=== PATIENT | female | born 1935 | race Caucasian/White ===

== ENCOUNTER → 2021-04-21 | Outpatient (CLI) | payer MEDICARE, BC | LOC: US 03-16 10:00 → MAMO 03-16 14:00 → US 03-17 10:00 → MAMO 03-17 11:30 → US 03-25 10:00 → MAMO 04-01 10:00 → US 04-01 11:00 → MAMO 04-08 10:30 → US 04-08 11:00 | DX: N64.4 Mastodynia (principal) | CPT/HCPCS: 76641-LT; 77066; G0279 ==

== ENCOUNTER 2021-10-12 09:44 | Emergency (ER) | payer MEDICARE, BC ==
[2021-10-12 12:14] LABS: HEMOGLOBIN 13.7 gm/dl (12.3-15.3); RED BLOOD COUNT 4.44 M/UL (4.00-5.10); WHITE BLOOD COUNT 5.4 K/UL (4.5-11.0)
[2021-10-12 12:55] LABS: BUN/CREATININE RATIO 17 (0-10)
[2021-10-12] MEDS ORDERED: CATAPRES 0.1MG0.1 MG PO (13:43)
== END 2021-10-12 14:13 | disposition home or self-care (01) ==
LOC: ER1 09:44
PROVIDERS: Physician Assistant
DX: I10 Essential (primary) hypertension (principal); R00.1 Bradycardia, unspecified; R53.1 Weakness; K21.9 Gastro-esophageal reflux disease without esophagitis; Z90.49 Acquired absence of other specified parts of digestive tract; Z88.1 Allergy status to other antibiotic agents; Z88.8 Allergy status to other drugs, medicaments and biological substances; Z79.899 Other long term (current) drug therapy
CPT/HCPCS: 70450; 80053; 82550; 82553; 84484; 85025; 93005; 99285

== ENCOUNTER 2021-10-15 11:33 | Emergency (ER) | payer MEDICARE, BC ==
[~2021-10-15 11:33] MED LIST: CATAPRES 0.1MG0.1 MG PO
[2021-10-15 12:04] LABS: HEMOGLOBIN 13.9 gm/dl (12.3-15.3); RED BLOOD COUNT 4.42 M/UL (4.00-5.10); WHITE BLOOD COUNT 5.9 K/UL (4.5-11.0)
[2021-10-15 12:37] LABS: BUN/CREATININE RATIO 19 (0-10)
== END 2021-10-15 14:25 | disposition home or self-care (01) ==
LOC: ER1 11:33
PROVIDERS: Physician Assistant
DX: I12.9 Hypertensive chronic kidney disease with stage 1 through stage 4 chronic kidney disease, or unspecified chronic kidney disease (principal); R00.1 Bradycardia, unspecified; N18.9 Chronic kidney disease, unspecified; E78.5 Hyperlipidemia, unspecified; Z90.49 Acquired absence of other specified parts of digestive tract; E03.9 Hypothyroidism, unspecified
CPT/HCPCS: 71045; 80053; 81001; 82550; 82553; 84484; 85025; 87086; 93005; 99284

== ENCOUNTER → 2021-11-29 | Outpatient (CLI) | payer MEDICARE, BC | LOC: HEART 5 11-09 13:30 | DX: R42 Dizziness and giddiness (principal); I10 Essential (primary) hypertension; R00.1 Bradycardia, unspecified | CPT/HCPCS: 93306 ==